=== PATIENT | male | born 2000 | race Caucasian/White ===

== ENCOUNTER 2020-03-06 08:40 | Emergency (ER) | payer OTHER ==
[~2020-03-06] VITALS: Ht 177.8 cm; Wt 109.1 kg
[2020-03-06 08:52] VITALS: BP 136/82
[2020-03-06 09:08] LABS: COVID AG,FIA SOURCE NASOPHARYNGEAL
[2020-03-06] MEDS ORDERED: EMTR1TAB13 PO (09:12)
== END 2020-03-06 09:13 | disposition home or self-care (01) ==
LOC: EMS 08:42
DX: Z20.828 Contact with and (suspected) exposure to other viral communicable diseases (principal)
CPT/HCPCS: 87426; 99283; U0003

== ENCOUNTER 2020-04-08 13:15 | Emergency (ER) | payer OTHER ==
[~2020-04-08] VITALS: Ht 177.8 cm; Wt 90.9 kg
[~2020-04-08 13:15] MED LIST: EMTR1TAB13 PO
[2020-04-08 13:27] VITALS: BP 135/84
[2020-04-08 14:47] LABS: COVID AG,FIA SOURCE NASOPHARYNGEAL
== END 2020-04-08 14:30 | disposition left against medical advice (07) ==
LOC: EMS 13:15
DX: Z20.828 Contact with and (suspected) exposure to other viral communicable diseases (principal); Z53.21 Procedure and treatment not carried out due to patient leaving prior to being seen by health care provider
CPT/HCPCS: 87426

== ENCOUNTER 2020-04-09 08:28 | Emergency (ER) | payer OTHER ==
[~2020-04-09] VITALS: Ht 177.8 cm; Wt 109.1 kg
[2020-04-09 08:41] VITALS: BP 131/68
== END 2020-04-09 08:56 | disposition home or self-care (01) ==
LOC: EMS 08:28
DX: Z20.828 Contact with and (suspected) exposure to other viral communicable diseases (principal)
CPT/HCPCS: Z7502

== ENCOUNTER 2020-05-05 08:32 | Emergency (ER) | payer OTHER ==
[~2020-05-05] VITALS: Ht 177.8 cm; Wt 109.1 kg
[2020-05-05 08:34] VITALS: BP 143/83
[2020-05-05 09:56] LABS: COVID AG,FIA SOURCE NASOPHARYNGEAL
== END 2020-05-05 10:10 | disposition home or self-care (01) ==
LOC: EMS 08:36
DX: Z20.828 Contact with and (suspected) exposure to other viral communicable diseases (principal)
CPT/HCPCS: 87426; 99283; C9803; U0003